=== PATIENT | female | born 2000 | race African-American/Black ===

== ENCOUNTER 2020-06-02 15:23 | Outpatient (REF) | payer OTHER, SELFPAY | END 2020-06-02 15:24 | disposition home or self-care (01) | LOC: HO.LNP 15:23 | PROVIDERS: Visit Provider Physician Assistant | DX: Z20.828 Contact with and (suspected) exposure to other viral communicable diseases (principal) | CPT/HCPCS: 87635 ==

== ENCOUNTER 2020-12-06 09:16 | Outpatient (REF) | payer BC, SELFPAY ==
[2020-12-06 15:26] LABS: CT PCR NOT DETECTED (Not Detect.); NG PCR NOT DETECTED (Not Detect.)
[2020-12-07 08:52] LABS: BV Int Neg Control Negative (Negative); BV Int Pos Control Positive (Positive)
== END 2020-12-06 09:17 | disposition home or self-care (01) ==
LOC: HO.LAB 09:16
PROVIDERS: PCP Nurse Practitioner Family; Visit Provider Advanced Practice Midwife
DX: N92.0 Excessive and frequent menstruation with regular cycle (principal); M54.5 Low back pain; Z20.2 Contact with and (suspected) exposure to infections with a predominantly sexual mode of transmission; Z32.02 Encounter for pregnancy test, result negative
CPT/HCPCS: 81025; 87480; 87491; 87510; 87591; 87660

== ENCOUNTER 2020-12-22 15:56 | Outpatient (REF) | payer BC, SELFPAY ==
--- NOTE | ~2020-12-22 | US_ITS ---
EXAMINATION: PELVIC ULTRASOUND CLINICAL INFORMATION: Excessive and frequent menstruation COMPARISON: None TECHNIQUE: Transabdominal and transvaginal pelvic ultrasound. Transvaginal exam was performed for better visualization of the uterus and ovaries. FINDINGS: The uterus is anteverted and measures 5.7 x 2.6 x 4.2 cm in dimension. There is a heterogeneous centrally hyperechoic and peripherally hypoechoic area adjacent to the endometrium. This is similar in echotexture to the endometrium and appears to represent an outpouching of the posterior surface of the endometrium in the upper posterior body or lower fundus of the uterus. This area measures approximately 1 cm. The endometrium does not appear thickened measuring 1 cm. No other focal uterine lesion is seen. The cervix is normal appearing. The right ovary is is not well visualized. The right ovary measures 3.4 x 2.2 x 2.5 cm. The left ovary is normal-appearing and measures 3.4 x 2.1 x 2.9 cm. There is a small amount of fluid and pelvis. US/US pelvic and transvaginal IMPRESSION: Heterogeneous area in the posterior upper uterine body or lower fundus adjacent to the endometrium. Echotexture is similar to the endometrium and this may represent a focal area of outpouching of the endometrium. Differential would include a fibroid and endometriosis.
== END 2020-12-22 15:57 | disposition home or self-care (01) ==
LOC: HO.US 15:56
PROVIDERS: Visit Provider Advanced Practice Midwife
DX: N92.0 Excessive and frequent menstruation with regular cycle (principal)
CPT/HCPCS: 76830; 76856

== ENCOUNTER → 2020-12-28 14:04 | Outpatient (BNVA) | payer BC, SELFPAY | PROVIDERS: PCP Nurse Practitioner Family; Visit Provider Advanced Practice Midwife ==

== ENCOUNTER → 2021-01-19 10:34 | Outpatient (BNVA) | payer BC, SELFPAY | PROVIDERS: Visit Provider Obstetrics & Gynecology ==

== ENCOUNTER 2021-02-02 10:20 | Outpatient (REF) | payer BC, SELFPAY ==
--- NOTE | ~2021-02-02 | MR_ITS ---
EXAMINATION: MR PELVIS WITHOUT AND WITH CONTRAST CLINICAL INFORMATION: Bleeding. Follow-up abnormal pelvic ultrasound. COMPARISON: Previous pelvic ultrasound December 2020 TECHNIQUE: Sagittal axial and coronal sequences through the pelvis with and without contrast. Patient received 8.5 mL is Gadavist contrast. FINDINGS: The uterus is anteverted and measures 6.5 x 2.7 x 5 cm in sagittal AP and transverse dimension. Endometrial thickness is normal measuring 0.4 cm. The junctional zone does not appear thickened. The contour of the posterior endometrium in the body of the uterus is slightly irregular. There is a focal area seen immediately adjacent to the posterior endometrium that is bright on T2-weighted sequences. This measures approximately 8 mm. This is difficult to appreciate on T1-weighted sequences and does not demonstrate evidence of enhancement. Possible focal adenomyosis or small fibroid should be considered. The cervix is normal appearing. The right ovary is normal-appearing. There is a new 3 x 3.6 x 3 cm simple left ovarian cyst. The left ovary is otherwise normal. There is a small amount of fluid in the pelvis. The bladder is normal. Visualized bowel is normal. The appendix is normal. No adenopathy is seen. Vascular structures are unremarkable. No hernia is seen. Bony structures are normal. MR/MR pelvis wo/w con IMPRESSION: Irregular contour of the posterior endometrium in the body of the uterus and 8 mm bright area of abnormal signal on T2-weighted sequences. Appearance is questionable for focal adenomyosis or fibroid. New 3 x 3.6 x 3 cm simple left ovarian cyst and small amount of fluid in the pelvis.
== END 2021-02-02 10:21 | disposition home or self-care (01) ==
LOC: HO.MRI 10:20
PROVIDERS: PCP Nurse Practitioner Family; Visit Provider Obstetrics & Gynecology
DX: R93.5 Abnormal findings on diagnostic imaging of other abdominal regions, including retroperitoneum (principal)
CPT/HCPCS: 72197; A9585

== ENCOUNTER → 2021-02-22 11:38 | Outpatient (BNVA) | payer BC, SELFPAY | PROVIDERS: Visit Provider Obstetrics & Gynecology ==

== ENCOUNTER 2021-02-25 13:19 | Outpatient (REF) | payer BC, SELFPAY ==
[2021-02-26 13:00] LABS: CT PCR NOT DETECTED (Not Detect.); NG PCR NOT DETECTED (Not Detect.)
== END 2021-02-25 13:20 | disposition home or self-care (01) ==
LOC: HO.LAB 13:19
PROVIDERS: Visit Provider Advanced Practice Midwife
DX: Z01.411 Encounter for gynecological examination (general) (routine) with abnormal findings (principal); Z11.3 Encounter for screening for infections with a predominantly sexual mode of transmission; N92.0 Excessive and frequent menstruation with regular cycle; R93.5 Abnormal findings on diagnostic imaging of other abdominal regions, including retroperitoneum; R93.9 Diagnostic imaging inconclusive due to excess body fat of patient
CPT/HCPCS: 87491; 87591; 88142

== ENCOUNTER 2021-04-07 15:32 | Outpatient (REF) | payer BC, SELFPAY ==
[2021-04-07 16:44] LABS: Thyroid Stimulating Hormone 0.53 uIU/mL (0.32-4.0)
[2021-04-09 20:01] LABS: Prolactin 8.3 ng/mL
[2021-04-12 23:26] LABS: DHEA Sulfate 156 mcg/dL (18-391)
[2021-04-13 16:51] LABS: Testosterone, Free 4.7 pg/mL (0.1-6.4); Testosterone, Total 53 ng/dL (2-45)
== END 2021-04-07 15:33 | disposition home or self-care (01) ==
LOC: HO.LAB 15:32
PROVIDERS: Visit Provider Obstetrics & Gynecology
DX: L68.0 Hirsutism (principal); N93.9 Abnormal uterine and vaginal bleeding, unspecified
CPT/HCPCS: 36415; 82627; 83498; 84146; 84402; 84403; 84443

== ENCOUNTER → 2021-05-25 13:36 | Outpatient (BNVA) | payer BC, SELFPAY | PROVIDERS: PCP Internal Medicine; Visit Provider Obstetrics & Gynecology ==